=== PATIENT | male | born 1945 | race Caucasian/White ===

== ENCOUNTER 2019-03-09 09:01 | Outpatient (CLI) | payer MEDICARE ==
--- NOTE | 2019-03-09 10:16 | ULT ---
EXAM: US Abdominal CLINICAL HISTORY: Nonalcoholic cirrhosis. COMPARISON: None. FINDINGS: Pancreas: Head of pancreas has a normal echotexture. Remainder the pancreas is obscured. IVC: Not well visualized Aorta: No evidence of aneurysmal dilatation in the visualized aorta and iliac arteries. Liver:Heterogeneous echotexture may be due to hepatic steatosis or hepatocellular disease. Limited ev aluation for hepatic masses and intrahepatic biliary dilatation. Gallbladder: No sonographic evidence of cholelithiasis, gallbladder wall thickening or pericholecysti c fluid. Gallardo's sign:Negative CBD: Common bile diameter 0.3 cm Main portal vein is patent. Appropriate direction of flow Right kidney: No hydronephrosis Right kidney measuring 9.8 x 4.2 x 4.8 cm cm in length. Left kidney: No hydronephrosis Left kidney measuring 4.4 x 10.9 x 4.1 cm cm in length Spleen: Normal echotexture. Maximum dimension 12.3 cm per IMPRESSION: 1. Increased echotexture of the liver may be due to hepatic steatosis or hepatocellular disease. Cons ider abdomen MRI or liver mass protocol CT if there is concern for hepatic masses
== END 2019-03-09 09:02 | disposition home or self-care (01) ==
LOC: ULT 09:01
PROVIDERS: ATTEND Internal Medicine
DX: K74.60 Unspecified cirrhosis of liver (principal); D69.59 Other secondary thrombocytopenia; K76.9 Liver disease, unspecified
CPT/HCPCS: 76700